=== PATIENT | male | born 1995 | race Caucasian/White ===

== ENCOUNTER 2020-05-10 05:15 | Emergency (ER) | payer OTHER ==
[~2020-05-10] VITALS: Ht 175.3 cm; Wt 71.7 kg
[2020-05-10 05:18] VITALS: BP 148/86
--- NOTE | 2020-05-10 05:18 | NUR ---
PT AMBULATED TO BED #5
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
[2020-05-10] MEDS ORDERED: LIDOCAINE/EPI 1% 1:100000 20 ML VIAL INJ ONE (05:40)
[2020-05-10] MEDS ORDERED: MORPHINE SULFATE 5 MG/ML VIAL IM ONE (05:40)
--- NOTE | 2020-05-10 05:40 | NUR ---
[place] [facility] AT BEDSIDE
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
--- NOTE | 2020-05-10 06:39 | NUR ---
MD PRETTY STILL AT BEDSIDE SUTURING ARM. PT TOLERATING WELL, DENIES ANY PAIN OR DISCOMFORT AT THIS TIME
[2020-05-10] MEDS ORDERED: IBUPROFEN 400 MG TAB ONE (07:03)
[2020-05-10] MEDS ORDERED: IBUPROFEN 400 MG TAB PO ONE (07:10)
--- NOTE | 2020-05-10 07:14 | NUR ---
REPORT GIVEN TO KAYLIE NUNEZ FOR CONTINUED CARE
[2020-05-10 07:40] VITALS: BP 147/84
--- NOTE | 2020-05-10 07:40 | NUR ---
Patient discharged with v/s stable. Written and verbal after care instructions given and explained. Patient alert, oriented and verbalized understanding of instructions. Ambulatory with steady gait. All questions addressed prior to discharge. ID band removed. Patient advised to follow up with PMD. Rx of PENICILLIN given. Patient educated on indication of medication including possible reaction and side effects. Opportunity to ask questions provided and answered. HOME CARE INSTRUCTIONS: KEEP WOUND DRY AND CLEAN, CHANGE DRESSING DAILY,CAN SHOWER BUT NOT TO TAKE BATH, AND TO RETURN IN 2 DAYS FOR WOUND CHECK AND 7-10 DAYS FOR SUTURE REMOVAL
== END 2020-05-10 07:40 | disposition home or self-care (01) ==
LOC: MED 05:15
DX: S01.511A Laceration without foreign body of lip, initial encounter (principal); S51.812A Laceration without foreign body of left forearm, initial encounter; Y08.89XA Assault by other specified means, initial encounter; Y93.89 Activity, other specified; Y92.89 Other specified places as the place of occurrence of the external cause; Y99.8 Other external cause status
CPT/HCPCS: 12002; 12032; 90471; 90715; 96372; 99285; J2001; J2270; 99284

== ENCOUNTER 2020-05-17 14:55 | Emergency (ER) | payer OTHER ==
[~2020-05-17] VITALS: Ht 175.3 cm; Wt 72.6 kg
[2020-05-17 14:59] VITALS: BP 122/83
--- NOTE | 2020-05-17 15:07 | NUR ---
25 y/o male from home presents to ED for suture removal to left forearm. Pt states he had sutures placed to forearm at [facility] 7 days ago. States 2/ "stretching" pain to suture site. No redness/tenderness noted. Skin warm, dry, intact. VSS
--- NOTE | 2020-05-17 15:09 | NUR ---
Dr Danielle at bedside for suture removal
--- NOTE | 2020-05-17 15:23 | NUR ---
APPLIED STERI STRIPS TO LEFT ARM WITHOUT ANY ISSUES
[2020-05-17 15:26] VITALS: BP 122/83
--- NOTE | 2020-05-17 15:26 | NUR ---
Patient discharged with v/s stable. Written and verbal after care instructions given and explained. Patient verbalized understanding. Ambulatory with steady gait. All questions addressed prior to discharge. Advised to follow up with PMD.
== END 2020-05-17 15:26 | disposition home or self-care (01) ==
LOC: MED 14:55
DX: S51.812D Laceration without foreign body of left forearm, subsequent encounter (principal); S01.511D Laceration without foreign body of lip, subsequent encounter; F41.9 Anxiety disorder, unspecified; F17.200 Nicotine dependence, unspecified, uncomplicated; X58.XXXD Exposure to other specified factors, subsequent encounter
CPT/HCPCS: 99281

== ENCOUNTER 2024-01-20 20:52 | Emergency (ER) | payer OTHER ==
[~2024-01-20] VITALS: Ht 175.3 cm; Wt 79.4 kg
[2024-01-20 20:53] VITALS: BP 130/96; PULSE 112; RESP 20; TEMP 97.4; O2SAT 97
[2024-01-20] MEDS ORDERED: KETOROLAC 30 MG/ML VIAL ONE (21:28)
[2024-01-20] MEDS: KETOROLAC 30 MG/ML VIAL IM ONE (21:30)
[2024-01-20] MEDS ORDERED: ACET-10509 PO (21:47)
[2024-01-20] MEDS ORDERED: IBUP-1842 PO (21:47)
== END 2024-01-20 21:50 | disposition home or self-care (01) ==
LOC: MED 20:52
DX: S63.591A Other specified sprain of right wrist, initial encounter (principal); Z79.899 Other long term (current) drug therapy; W18.30XA Fall on same level, unspecified, initial encounter; Y93.51 Activity, roller skating (inline) and skateboarding; Y92.89 Other specified places as the place of occurrence of the external cause; Y99.8 Other external cause status
CPT/HCPCS: 29125; 73110; 96372; 99283; J1885

== ENCOUNTER 2024-03-07 18:03 | Emergency (ER) | payer MEDICAID, OTHER ==
[~2024-03-07] VITALS: Ht 175.3 cm; Wt 77.6 kg
[~2024-03-07 18:03] MED LIST: ACET-10509 PO; IBUP-1842 PO
[2024-03-07 18:14] VITALS: BP 109/70; PULSE 115; RESP 20; TEMP 98.1; O2SAT 96
== END 2024-03-07 19:10 | disposition left against medical advice (07) ==
LOC: MED 18:03
DX: M79.604 Pain in right leg (principal); R22.41 Localized swelling, mass and lump, right lower limb; J06.9 Acute upper respiratory infection, unspecified; F41.9 Anxiety disorder, unspecified; F32.9 Major depressive disorder, single episode, unspecified; Z53.21 Procedure and treatment not carried out due to patient leaving prior to being seen by health care provider